=== PATIENT | female | born 1965 | race Two or more races ===

== ENCOUNTER 2017-03-21 08:52 | Emergency (ER) | payer OTHER ==
[~2017-03-21] VITALS: Ht 165.1 cm; Wt 88.0 kg
[2017-03-21 09:33] LABS: microscopic required? NO
[2017-03-21 09:54] LABS: urine erythrocyte NEGATIVE (NEGATIVE)
[2017-03-21 11:14] VITALS: BP 131/69
== END 2017-03-21 11:12 | disposition left against medical advice (07) ==
LOC: ED 08:52
PROVIDERS: Emergency Medicine
DX: R10.13 Epigastric pain (principal); R11.2 Nausea with vomiting, unspecified
CPT/HCPCS: 83880; J2405; J3490; J7030; Q0092